=== PATIENT | female | born 1955 | race African-American/Black ===

== ENCOUNTER 2017-06-12 11:19 | Observation (INO) ==
[2017-06-12] MEDS ORDERED: NITROGLYCERIN 2% OINT 1 INCH/GM PACK TOP STA (12:15)
[2017-06-12] MEDS ORDERED: ALUM/MAG/SIMETH/LIDO VISC 1:1 30 ML BOTTLE PO STA (12:15)
[2017-06-12] MEDS ORDERED: ONDANSETRON 4 MG/2 ML VIAL IV STA (12:15)
[2017-06-12] MEDS ORDERED: METOPROLOL TARTRATE 25 MG TABLET PO STA (12:15)
[2017-06-12] MEDS ORDERED: ASPIRIN 325 MG TABLET PO STA (12:15)
[2017-06-12] MEDS ORDERED: KETOROLAC 30 MG/1 ML VIAL IV STA (12:15)
[2017-06-12] MEDS ORDERED: MORPHINE 2 MG/1 ML SYRINGE IV STA (12:16)
[2017-06-12 12:27] LABS: Basophils # 0.1 10*3/uL (0.0-0.2); Basophils % 0.8 % (0.0-0.8); Eosinophils # 0.2 10*3/uL (0.0-0.87); Eosinophils % 2.5 % (0.00-10.9); Hemoglobin 12.2 GM/DL (12.0-16.0); Immature Granulocytes % 0.3 %; Immature Granulocytes Absolute 0.02 #; Lymphocytes # 1.6 10*3/uL (1.4-4.0); Lymphocytes % 21.6 % (21.3-54.2); Mean Corpuscular HGB Conc 34.9 GM/DL (32-36); Mean Corpuscular Hemoglobin 29 PG (27-34); Mean Corpuscular Volume 83.3 FL (87-102); Mean Platelet Volume 11.7 FL (9.6-12.0); Monocytes # 0.6 10*3/uL (0.11-0.8); Monocytes % 7.8 % (1.7-12.7); Neutrophils # 4.8 10*3/uL (1.4-7.4); Platelet Count 232 T/CUMM (130-400); Red Cell Distribution Width 12.9 % (9.3-17.3); White Blood Count 7.2 T/CUMM (4-12)
[2017-06-12] MEDS ORDERED: NITROGLYCERIN 2% OINT 1 INCH/GM PACK TOP ONE (12:27)
[2017-06-12] MEDS ORDERED: ALUM/MAG/SIMETH/LIDO VISC 1:1 30 ML BOTTLE PO ONE (12:28)
[2017-06-12] MEDS ORDERED: METOPROLOL TARTRATE 25 MG TABLET ONE (12:28)
[2017-06-12] MEDS ORDERED: MORPHINE 2 MG/1 ML SYRINGE ONE (12:28)
[2017-06-12] MEDS ORDERED: ONDANSETRON 4 MG/2 ML VIAL ONE (12:28)
[2017-06-12] MEDS ORDERED: KETOROLAC 30 MG/1 ML VIAL ONE (12:28)
[2017-06-12] MEDS ORDERED: ASPIRIN 325 MG TABLET ONE (12:28)
--- NOTE | 2017-06-12 12:30 | Emergency Department Note ---
Mane Seay Hilary, am scribing for, and in the presence of, Tom Ramires MD 12:12. Ike Seay Charles R, MD, personally performed the services described in this documentation, ascribed by Pamela Gilliam in my presence, and it is both accurate and complete . Arrival - Arrival Chief Complaint: Chest Pain Stated Complaint: Sharp pain down left arm. N/v, sweating ED Nursing Triage Note: Left arm pain onset on Friday with radiation into chest - pt states that she was seen and treated by her family MD yesterday and was given nitro - pt states that she has been taking nitro at home without relief Mode of Arrival: Ambulatory Limitations: No Limitations Source: Patient, RN Notes Reviewed Time Seen by Provider: 06/12/17 11:55 - History of Present Illness HPI Narrative: Pt is a 62 y/o female presenting to the ED with c/o left arm pain which onset 5 days ago. She reports having left arm pain. Pt states that she was seen and treated by her family MD at [facility] yesterday and was given nitro but it hasn't given her any relief. She confirms left arm pain that radiates to her chest, diaphoresis, pounding in her ears, dizziness, Nausea and vomiting. Pt has a PMHx of HTN and NIDDM. No other complaints or problems stated in the ED. Onset (ago): day(s) Consistency: constant Severity: mild Severity scale (1-10): 1 Quality: sharp Date of Last Menstrual Period: hyster Allergies/Adverse Reactions: Allergies Allergy/AdvReac Type Severity Reaction Status Date / Time codeine AdvReac Dizziness Verified 11/25/15 03:50 Home Medications: Home Medications Medication Instructions Recorded Confirmed Type Amlodipine Besylate [Amlodipine 1 tablet PO BID 11/24/15 11/24/15 History Besylate] Estradiol [Estradiol Tab] 2 mg PO DAILY 11/24/15 11/24/15 History Ketorolac Tab [Toradol Tab] 10 mg PO Q8H #14 tablet 11/24/15 Rx Losartan/Hydrochlorothiazide 100 mg PO DAILY 11/24/15 11/24/15 History [Losartan-Hctz 100-12.5 mg Tab] Sitagliptin Phos/Metformin HCl 1 tablet PO BID 11/24/15 11/24/15 History [Janumet 50-1,000 mg Tablet] glipiZIDE [Glipizide Xl] 1 tablet PO BID 11/24/15 11/24/15 History Cyclobenzaprine [Flexeril] 10 mg PO TID #20 tablet 11/25/15 Rx HYDROcodone/ACETAMIN 10-325 [[place] 1 tablet PO Q6H #14 tablet 11/25/15 Rx 10-325] Review of System - Review of System 12 point system: reviewed and no additional remarkable complaints except as stated - Review of System Constitutional: Present: diaphoresis. Absent: fever Cardiovascular: Present: chest pain Gastrointestinal: Present: nausea, vomiting Musculoskeletal: Present: arm pain (left arm pain) Medical,Surgical,& Family Hx - Medical History Cardio: History of: Hypertension Endocrine: History of: Diabetes Mellitus (NIDDM) (GLIPIZIDE AND BUTOMAX) Gastrointestinal: History of: Bowel Obstruction (2002) - Surgical History Abdominal Surgeries: Surgical HX of: Abdominal Surgery (2002 FOR BOWEL OBSTRUCTION) Reproductive Surgeries: Surgical HX of;: Hysterectomy (1994) - Family History Family History: Reports;: Family Diabetes (MOM, SISTER, BROTHER), Family Hypertension - Social History Smoking Status: Never smoker Frequency of Alcohol Use: None Type of Drug Use: None Exam Vital Signs: Vital Signs Temperature 98.1 F 06/12/17 11:30 Pulse Rate 90 06/12/17 11:30 Respiratory Rate 20 06/12/17 11:30 Blood Pressure 171/80 06/12/17 11:30 O2 Sat by Pulse Oximetry 100 06/12/17 12:18 - General General appearance: alert, in no apparent distress - Head Head exam: Present: atraumatic, normocephalic - Eye Eye exam: Present: normal appearance, PERRL, EOMI - ENT ENT exam: Present: mucous membranes moist, TM's normal bilaterally. Absent: mucous membranes dry - Neck Neck exam: Present: full ROM, trachea midline. Absent: tenderness - Chest Chest inspection: Present: symmetric chest wall rise, tenderness (reproduceable chestwall tenderness under the left breast) - Respiratory Respiratory exam: Present: normal lung sounds bilaterally. Absent: respiratory distress - Cardiovascular Cardiovascular exam: Present: regular rate, normal rhythm, normal heart sounds. Absent: murmur, rubs, gallop - Abdominal Exam Abdominal exam: Present: soft, normal bowel sounds. Absent: distention, tenderness - Extremities Exam Extremities exam: Present: full ROM. Absent: tenderness - Back Exam Back exam: Present: full ROM. Absent: tenderness - Neurological Exam Neurological exam: Present: alert, oriented X3, CN II-XII intact. Absent: motor sensory deficit - Psychiatric Psychiatric exam: Present: normal affect, normal mood - Skin Skin exam: Present: warm, dry, intact, normal color. Absent: rash Course - Consultations Consultation #1: Hospitalist will admit patient Time: 15:13 Results - Labs CBC & BMP: 06/12/17 12:10 06/12/17 12:10 Lab Results: I have reviewed the patients labs Labs: Laboratory Tests 06/12/17 12:10 WBC 7.2 RBC 4.20 Hgb 12.2 Hct 35.0 L MCV 83.3 L Plt Count 232 Laboratory Tests 06/12/17 12:10 INR 1.0 PT Patient/Control Mix 10.3 D-Dimer, Quantitative <= 0.5 Laboratory Tests 06/12/17 06/12/17 12:10 12:10 Sodium 141 Potassium 4.3 Chloride 106 Carbon Dioxide 26 BUN 19 H Creatinine 1.20 H Glucose 153 H Troponin I < 0.015 Albumin 3.3 L Globulin 3.6 H Albumin/Globulin Ratio 0.9 L - Diagnostic Findings Procedure: Chest x-ray: report reviewed by me (No evidence of acute pathology) Disposition Clinical Impression: Chest pain Case discussed with: patient Disposition: Still a Patient Condition: Stable Time of Disposition: 15:13
--- NOTE | 2017-06-12 12:43 | XRay Report ---
XR chest 1V portable Indication: Chest pain. Comparison: None. Technique: Portable AP chest was performed. Findings: Heart size is normal. Pulmonary vasculature appears within normal limits. No significant abnormality of the mediastinal contours demonstrated. Lungs are clear. Bones and soft tissues demonstrate no significant abnormalities. Impression: 1. No evidence of acute pathology. 06/12/2017 12:40 PM PROCEDURE INTERPRETED AT [facility] [place] DEPARTMENT OF RADIOLOGY Final Report Signed by: Dr. Mohsen Moore
[2017-06-12 12:49] LABS: D-Dimer <= 0.5 MG/L FEU; PT Patient Result 10.3 SECS
[2017-06-12 13:13] LABS: Albumin 3.3 G/DL (3.4-5.0); Bilirubin,Total 0.8 MG/DL (0.2-1.0); Calcium 9.7 MG/DL (8.5-10.1); Magnesium 1.9 MG/DL (1.8-2.4); Osmolality,Calculated 285.3 MOS/KG (273-304); Potassium 4.3 MMOL/L (3.5-5.1); Total Protein 6.9 G/DL (6.4-8.3)
--- NOTE | 2017-06-12 15:48 | EKG Report ---
Stationary ECG Study [facility] ER Test Date: 06/12/2017 3:45:57 PM Pat Name: RUDOLPH MAHER Department: Room: Gender: F Captain/Check Airman: : 1955 Requested by: Tom Flanagan Order Number: [id number] Reading MD: LISA LIRIANO Intervals [place] Rate: 59 P: 50 MO: 142 QRS: 23 QRSD: 66 T: 133 QT: 417 QTc: 417 Interpretive Statements SINUS RHYTHM Electronically Signed On 06-13-17 15:51:59 CDT by LISA LIRIANO [email or web address]
[2017-06-12] MEDS ORDERED: ACETAMINOPHEN 325 MG TABLET PO PRN (15:52)
[2017-06-12] MEDS ORDERED: INSULIN REGULAR 100 UNIT/ML SUBCUT ONE (15:52)
[2017-06-12] MEDS ORDERED: ONDANSETRON 4 MG/2 ML VIAL IV PRN (15:52)
--- NOTE | 2017-06-12 16:04 | Hospitalist History & Physical ---
Assessment and Plan (1) Diabetes Status: Acute Current Visit: Yes (2) Hypertension Status: Acute Current Visit: Yes (3) Chest pain Status: Acute Assessment and plan: Our plan for this patient will be admitting her to a monitored bed. Draw serial cardiac enzymes check a fasting lipid profile and consult cardiology. Continue home meds as appropriate once they are confirmed. Temporarily placing her on a sliding scale as needed. Current Visit: Yes History of Present Illness Chief complaint: Chest pain arm pain History of present illness: Ms. Gordillo is a 62 year old female with past medical history significant for diabetes and hypertension has been experiencing left arm pain for a few days. She went over to Dr. Sterling's office and he prescribed her sublingual nitroglycerin. When the pain came on she did take them and it did help with the pain. But she started developing nausea and vomiting and some chest tightness. She reports the chest tightness radiates to her back. She called Dr. Maldonado office today and they recommended she come up to our hospital for further evaluation I was consulted to admit her through the emergency room Home Medications Medication Instructions Recorded Confirmed Type Estradiol [Estradiol Tab] 2 mg PO DAILY 11/24/15 11/24/15 History Losartan/Hydrochlorothiazide 100 mg PO DAILY 11/24/15 11/24/15 History [Losartan-Hctz 100-12.5 mg Tab] Aspirin EC Tab 81 mg PO QAM 06/12/17 06/12/17 History Atorvastatin [Lipitor] 40 mg PO PC SUPPER 06/12/17 History Insulin Detemir [Levemir FlexPen] 25 units SUBCUT QPM 06/12/17 History NIFEdipine [Nifedipine ER] 60 mg PO DAILY 06/12/17 History Nitroglycerin Sl Tab [Nitrostat] 0.4 mg SL Q5M PRN 06/12/17 History Allergies Allergy/AdvReac Type Severity Reaction Status Date / Time codeine AdvReac Dizziness Verified 11/25/15 03:50 Medical,Surgical,& Family Hx - Medical History Cardio: History of: Hypertension Endocrine: History of: Diabetes Mellitus (NIDDM) (GLIPIZIDE AND BUTOMAX) Gastrointestinal: History of: Bowel Obstruction (2002) - Surgical History Abdominal Surgeries: Surgical HX of: Abdominal Surgery (2002 FOR BOWEL OBSTRUCTION) Reproductive Surgeries: Surgical HX of;: Hysterectomy (1994) - Family History Family History: Reports;: Family Diabetes (MOM, SISTER, BROTHER), Family Hypertension - Social History Smoking Status: Never smoker Frequency of Alcohol Use: None Type of Drug Use: None 12 point system: reviewed and no additional remarkable complaints except as stated Exam - Constitutional Vitals: Period Temp Pulse Resp BP Sys/Hannah Pulse Ox Last 24 Hr 98.1 F-98.1 F 61-90 20-20 146-171/80-82 97-100 - General General appearance: alert, in no apparent distress - Head Head exam: Present: atraumatic, normocephalic - Eye Eye exam: Present: normal appearance, PERRL, EOMI - ENT ENT exam: Present: mucous membranes moist, TM's normal bilaterally. - Neck Neck exam: Present: full ROM, trachea midline. - Chest Chest inspection: Present: symmetric chest wall rise, some tenderness appreciated - Respiratory Respiratory exam: Present: normal lung sounds bilaterally. - Cardiovascular Cardiovascular exam: Present: regular rate, normal rhythm, normal heart sounds - Abdominal Exam Abdominal exam: Present: soft, normal bowel sounds. - Extremities Exam Extremities exam: Present: full ROM. - Back Exam Back exam: Present: full ROM. - Neurological Exam Neurological exam: Present: alert, oriented X3, CN II-XII intact. - Psychiatric Psychiatric exam: Present: normal affect, normal mood - Skin Skin exam: Present: warm, dry, intact, normal color. Absent: rash Results - Labs CBC & BMP: 06/12/17 12:10 06/12/17 12:10
[2017-06-12 17:32] LABS: Risk Ratio 3.94; VLDL CHOLESTEROL 26.4 MG/DL
[2017-06-12] MEDS: NITROGLYCERIN 2% OINT 1 INCH/GM PACK TOP SCH (17:32)
[2017-06-12] MEDS: INSULIN REGULAR 100 UNIT/ML SUBCUT SCH ×3 (17:37→23:57)
[2017-06-12] MEDS: ASPIRIN EC 325 MG TABLET PO SCH (17:37)
[2017-06-13] MEDS: NITROGLYCERIN 2% OINT 1 INCH/GM PACK TOP SCH ×2 (00:04→06:15)
[2017-06-13] MEDS: MORPHINE 2 MG/1 ML SYRINGE IV PRN ×3 (03:47→20:12)
--- NOTE | 2017-06-13 06:04 | EKG Report ---
Stationary ECG Study [facility] ER Test Date: 06/12/2017 11:28:02 AM Pat Name: RUDOLPH MAHER Department: Room: 534 Gender: F Top Spotter: : 1955 Requested by: Tom Flanagan Order Number: [id number] Reading MD: LISA LIRIANO Intervals [place] Rate: 75 P: 64 NE: 126 QRS: 34 QRSD: 65 T: 127 QT: 369 QTc: 398 Interpretive Statements SINUS RHYTHM NONSPECIFIC T WAVE ABNORMALITY Electronically Signed On 06-13-17 15:45:54 CDT by LISA LIRIANO [email or web address]
[2017-06-13] MEDS: INSULIN REGULAR 100 UNIT/ML SUBCUT SCH ×4 (06:14→22:53)
--- NOTE | 2017-06-13 11:26 | Cardiology Consult Note ---
Elan Seay April RN, am scribing for, and in the presence of, Sweetie Barboza NP 11:21. Assessment and Plan - Time spent with patient Time spent with patient: Greater than 30 minutes (Assessment, planning, documentation, medication review) (1) Chest pain Status: Acute Assessment and plan: SEE PLAN OF CARE LISTED BELOW Current Visit: Yes (2) Diabetes Status: Chronic Assessment and plan: SEE PLAN OF CARE LISTED BELOW Current Visit: Yes (3) Hypertension Status: Chronic Assessment and plan: SEE PLAN OF CARE LISTED BELOW Current Visit: Yes (4) Dyslipidemia Status: Chronic Assessment and plan: SEE PLAN OF CARE LISTED BELOW Current Visit: Yes (5) Shoulder pain, left Status: Acute Assessment and plan: SEE PLAN OF CARE LISTED BELOW Current Visit: Yes Qualifiers: Chronicity: acute Qualified Code(s): M25.512 - Pain in left shoulder History of Present Illness - Data of Consult Patient: new to practice Consult date: 06/12/17 Requesting Physician: Shahid Crouch Primary care physician: Devora Owens - Consult Narrative Reason for consult: Chest pain History of present illness: 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 MAX PCP: DR. MEDINA FREY Ms. Gordillo is a 62 year old female who is never been seen by naturopathic oncology provider. She denies any history of ever having had a heart catheterization or stress test. She has a history of hypertension and NIDDM. Surgical history includes hysterectomy, surgery for bowel obstruction, bilateral cataracts. Family history is positive for mother and siblings with diabetes, mother and sister with hypertension, and brother with cancer. She reports she is a lifetime non- smoker. She lives with her son. She does not use assistance of a cane or walker to ambulate. She states she is active and walks her dog every day. On Friday of this week she began to experience pain to her left arm, left back, and left side of her chest. She describes this as a dull, constant pain that progressively got worse through the week. The left shoulder pain is worse with movement causing numbness tingling and pain down the left arm when she moves her arm in a range of motion type activity. Of note, her chest pain is reproducible to light palpation as well. Rates the discomfort as a 7 on a scale of 1-10. At this time, she is chest pain and arm/shoulder pain free until I perform movements and palpation in these areas. On admission, blood pressure 171/80. She was given 5 mg of Lopressor pressure IV in the emergency department and her blood pressure improved. Normally, patient can perform her activities at home without chest pain, heaviness, tightness or shortness of breath. In fact, she walks her pit bull every day at least 1 mile and can perform these activities without symptoms of angina. Troponin is negative 3, chest x-ray stable. EKG does not reveal acute NV. D-dimer was negative as well. At this time, n.p.o. for stress testing this morning. Will adjust her medications for better blood pressure control as well. Adding a lipid profile as well. I will further discuss with Dr. Max and await additional recommendations. Admission lab data: WBC 7.2 hemoglobin 12.2 hematocrit 35 Sodium 141 potassium 4.3 chloride 106 CO2 26 BUN 19 creatinine 1.2 BNP 36 magnesium 1.9 Triglycerides 132 cholesterol 244 LDL 147 HDL 62 ASSESSMENT/PLAN: 1. CHEST PAIN - atypical for chest pain. Will order Cardiolite stress test. 2. SHOULDER PAIN - atypical for chest pain. Cardiolite stress test this morning. If this is negative, x-ray of shoulder 3. HYPERTENSION - suboptimally controlled at this time. Will adjust medications accordingly 4. DYSLIPIDEMIA - LDL 147. Currently on Lipitor 40 mg. I will increase to 80 mg each evening 5. NIDDM - continue current medications for treatment of diabetes CC: Vasquez Ferreira MD - Home Medications and Allergies Home Medications: Home Medications Medication Instructions Recorded Confirmed Type Estradiol [Estradiol Tab] 2 mg PO QAM 11/24/15 06/12/17 History Losartan/Hydrochlorothiazide 100 mg PO QAM 11/24/15 06/12/17 History [Losartan-Hctz 100-12.5 mg Tab] Aspirin EC Tab 81 mg PO QAM 06/12/17 06/12/17 History Atorvastatin [Lipitor] 40 mg PO PC SUPPER 06/12/17 06/12/17 History Insulin Detemir [Levemir FlexPen] 25 units SUBCUT BIDAC 06/12/17 06/12/17 History NIFEdipine [Nifedipine ER] 60 mg PO QAM 06/12/17 06/12/17 History Nitroglycerin Sl Tab [Nitrostat] 0.4 mg SL Q5M PRN 06/12/17 06/12/17 History Allergies/Adverse Reactions: Allergies Allergy/AdvReac Type Severity Reaction Status Date / Time codeine AdvReac Dizziness Verified 11/25/15 03:50 - Constitutional Constitutional: Present: as per HPI. Absent: excessive sweating, fatigue, frequent falls - EENT Eyes: Present: requires corrective lense. Absent: blurry vision, loss of vision Ears: Present: tinnitus. Absent: ear pain Nose, mouth and throat: Present: neck pain. Absent: epistaxis, headache(s) - Cardiovascular Cardiovascular: Present: chest pain at rest, diaphoresis, radiating jaw, neck or arm pain. Absent: chest pain with activity, dyspnea, dyspnea on exertion, edema, lightheadedness, orthopnea, palpitations - Respiratory Respiratory: Present: cough. Absent: dyspnea, hemoptysis, dyspnea on exertion, wheezing - Gastrointestinal Gastrointestinal: Present: nausea, vomiting. Absent: abdominal pain, constipation, diarrhea, hematemesis, hematochezia, melena - Genitourinary Genitourinary: Absent: dysuria, hematuria - Musculoskeletal Musculoskeletal: Present: back pain, limited range of motion - Neurological Neurological: Absent: confusion, dizziness, frequent falls, headache(s), syncope - Psychiatric Psychiatric: Absent: anxiety, depression - Endocrine Endocrine: Present: cold intolerance. Absent: polydipsia, polyuria - Hematologic/Lymphatic Hematologic/Lymphatic: Absent: easy bleeding, easy bruising Medical,Surgical,& Family Hx - Medical History Cardio: History of: Hypertension Endocrine: History of: Diabetes Mellitus (NIDDM) Gastrointestinal: History of: Bowel Obstruction (2002) Musculoskeletal: History of: Musculoskeletal Problems (arthritis) - Surgical History HEENT Surgeries: Surgical HX of: Eye Surgery (Bilateral cataract) Abdominal Surgeries: Surgical HX of: Abdominal Surgery (2002 FOR BOWEL OBSTRUCTION) Reproductive Surgeries: Surgical HX of;: Hysterectomy (1994) - Family History Family History: Reports;: Family Cancer (Brother), Family Diabetes (MOM, SISTER , BROTHER), Family Hypertension (Mother, sister) Comment Only: Additional Family History (pts sister had lupus) - Social History Smoking Status: Never smoker Have you smoked in the last 12 months: No Frequency of Alcohol Use: None Type of Drug Use: None Lives With:: Children Functional capacity: independent ambulation Physical Examination Vital Signs Temp Pulse Resp BP Pulse Ox 98.1 F 90 20 171/80 100 06/12/17 11:22 06/12/17 11:22 06/12/17 11:22 06/12/17 11:22 06/12/17 11:22 General: Present: Appears Well, No Apparent Distress HEENT: Present: PERRL, Mucus Membranes Moist Neck: Present: Supple Neck, Midline Trachea, No Bruit Cardiac: Present: Reg Rate and Rhythm, No Murmur Lungs: Present: Normal Breath Sounds, No Wheeze, Rales, Rhonchi Neuro: Present: Tingling, Grossly Intact. Absent: Weakness, Resting Tremor, Essential Tremor Abdomen: Present: Soft, Active Bowel Sounds, Non-Tender. Absent: Distended Skin: Absent: Rash, Suspicious Lesions Musculoskeletal: Present: Decreased Range of Motion, No Pain Gait: Present: Normal Gait Extremities: Present: No Edema, Normal Upper Extr. Pulses, Normal Lower Extr. Pulses (Weak pulses) Result/EKG - Labs CBC & BMP: 06/12/17 12:10 06/12/17 12:10 Lab Results: I have reviewed the past 24 hour labs Labs: Laboratory Results - last 24 hr 06/12/17 06/12/17 06/12/17 12:10 12:10 12:10 WBC RBC Hgb Hct MCV MCH MCHC RDW Plt Count MPV Neut % (Auto) Lymph % (Auto) Webb % (Auto) Eos % (Auto) Baso % (Auto) Neut # (Auto) Lymph # (Auto) Webb # (Auto) Eos # (Auto) Baso # (Auto) Immature Gran % Nucleated RBC % Immature Gran # Nucleated RBCs # Immature Plt Fraction INR 1.0 PT Patient/Control Mix 10.3 D-Dimer, Quantitative <= 0.5 Sodium 141 Potassium 4.3 Chloride 106 Carbon Dioxide 26 Anion Gap 13.3 BUN 19 H Creatinine 1.20 H GFR Calculation 53 BUN/Creatinine Ratio 15.00 Glucose 153 H POC Glucose Calculated Osmolality 285.3 Calcium 9.7 Magnesium 1.9 Total Bilirubin 0.80 AST 13 ALT 16 Alkaline Phosphatase 103 Troponin I B-Natriuretic Peptide 36 Total Protein 6.9 Albumin 3.3 L Globulin 3.6 H Albumin/Globulin Ratio 0.9 L Triglycerides Cholesterol LDL Cholesterol VLDL Cholesterol HDL Cholesterol Heart Disease Risk Ratio Lipase 90.0 08/06/12/17 06/12/17 12:10 12:10 15:53 WBC 7.2 RBC 4.20 Hgb 12.2 Hct 35.0 L MCV 83.3 L MCH 29 MCHC 34.9 RDW 12.9 Plt Count 232 MPV 11.7 Neut % (Auto) 67.0 Lymph % (Auto) 21.6 Webb % (Auto) 7.8 Eos % (Auto) 2.5 Baso % (Auto) 0.8 Neut # (Auto) 4.8 Lymph # (Auto) 1.6 Webb # (Auto) 0.6 Eos # (Auto) 0.2 Baso # (Auto) 0.1 Immature Gran % 0.3 Nucleated RBC % 0.0 Immature Gran # 0.02 Nucleated RBCs # 0.00 Immature Plt Fraction 0.0 INR PT Patient/Control Mix D-Dimer, Quantitative Sodium Potassium Chloride Carbon Dioxide Anion Gap BUN Creatinine GFR Calculation BUN/Creatinine Ratio Glucose POC Glucose Calculated Osmolality Calcium Magnesium Total Bilirubin AST ALT Alkaline Phosphatase Troponin I < 0.015 < 0.015 B-Natriuretic Peptide Total Protein Albumin Globulin Albumin/Globulin Ratio Triglycerides Cholesterol LDL Cholesterol VLDL Cholesterol HDL Cholesterol Heart Disease Risk Ratio Lipase 06/12/17 06/12/17 06/12/17 16:54 17:12 18:43 WBC RBC Hgb Hct MCV MCH MCHC RDW Plt Count MPV Neut % (Auto) Lymph % (Auto) Webb % (Auto) Eos % (Auto) Baso % (Auto) Neut # (Auto) Lymph # (Auto) Webb # (Auto) Eos # (Auto) Baso # (Auto) Immature Gran % Nucleated RBC % Immature Gran # Nucleated RBCs # Immature Plt Fraction INR PT Patient/Control Mix D-Dimer, Quantitative Sodium Potassium Chloride Carbon Dioxide Anion Gap BUN Creatinine GFR Calculation BUN/Creatinine Ratio Glucose POC Glucose 134 H Calculated Osmolality Calcium Magnesium Total Bilirubin AST ALT Alkaline Phosphatase Troponin I < 0.015 B-Natriuretic Peptide Total Protein Albumin Globulin Albumin/Globulin Ratio Triglycerides 132 Cholesterol 244 H LDL Cholesterol 147.0 VLDL Cholesterol 26.4 HDL Cholesterol 62 H Heart Disease Risk Ratio 3.94 Lipase 06/12/17 06/13/17 06/13/17 22:08 00:42 04:17 WBC RBC Hgb Hct MCV MCH MCHC RDW Plt Count MPV Neut % (Auto) Lymph % (Auto) Webb % (Auto) Eos % (Auto) Baso % (Auto) Neut # (Auto) Lymph # (Auto) Webb # (Auto) Eos # (Auto) Baso # (Auto) Immature Gran % Nucleated RBC % Immature Gran # Nucleated RBCs # Immature Plt Fraction INR PT Patient/Control Mix D-Dimer, Quantitative Sodium Potassium Chloride Carbon Dioxide Anion Gap BUN Creatinine GFR Calculation BUN/Creatinine Ratio Glucose POC Glucose 439 H 212 H 110 H Calculated Osmolality Calcium Magnesium Total Bilirubin AST ALT Alkaline Phosphatase Troponin I B-Natriuretic Peptide Total Protein Albumin Globulin Albumin/Globulin Ratio Triglycerides Cholesterol LDL Cholesterol VLDL Cholesterol HDL Cholesterol Heart Disease Risk Ratio Lipase - Diagnostic Findings Procedure: Chest x-ray: report reviewed by me - EKG EKG results: interpreted by me EKG shows: sinus rhythm Jabari Seay Bonnie E, NP, personally performed the services described in this documentation, ascribed by Cathie Ansari RN in my presence, and it is both accurate and complete 125 .
--- NOTE | 2017-06-13 11:29 | Event Note ---
Patient underwent Cardiolite stress test without difficulty. She achieved target heart rate easily and without complaints of chest pain, heaviness, tightness or shortness of breath. No arrhythmia, no ST changes noted. Good exercise tolerance noted. She was hypertensive initially at the beginning of the study and reached a maximum of 180/100 at peak. At this time, patient is being transitioned to nuclear medicine for completion of final scan. Dr. Max to read, interpreted and advise
[2017-06-13] MEDS ORDERED: GLUCAGON 1 MG VIAL IM PRN (12:08)
[2017-06-13] MEDS ORDERED: DEXTROSE 50% 25 GM/50 ML SYRINGE IV PRN (12:08)
[2017-06-13] MEDS: PANTOPRAZOLE 40 MG TABLET PO SCH (12:15)
[2017-06-13] MEDS: ASPIRIN EC 325 MG TABLET PO SCH (12:15)
[2017-06-13] MEDS: LOSARTAN 50 MG TABLET PO SCH (12:15)
[2017-06-13] MEDS: hydroCHLOROthiazide 12.5 MG CAPSULE PO SCH (12:15)
--- NOTE | 2017-06-13 15:07 | XRay Report ---
Two-view left shoulder June 13, 2017 Indication: Pain with motion, limited range of motion Comparison images not available Findings: No fracture or dislocation. Positioning is somewhat suboptimal. Minimal spurring across the AC joint. Visualized lung parenchyma is well aerated. No demonstratable rib fractures. No soft tissue abnormalities. Impression: Unremarkable left shoulder slightly limited by suboptimal positioning. PROCEDURE INTERPRETED AT [facility] DEPARTMENT OF RADIOLOGY Final Report Signed by: Mohsen Villanueva
--- NOTE | 2017-06-13 15:45 | Nuclear Medicine Report ---
DATE: 06/13/2017 PROCEDURE: EXERCISE CARDIOLITE GATED SPECT PERFUSION STUDY. REFERRING PHYSICIAN: Dr. Latrice Ferreira INITIAL IMPRESSION: 1. A 62-YEAR-OLD WITH ATYPICAL CHEST PAIN. 2. ABNORMAL EKG. 3. HYPERTENSION. FINAL IMPRESSION: NORMAL EXERCISE CARDIOLITE GATED SPECT PERFUSION STUDY. I. DESCRIPTION OF PROCEDURE: The patient received 10.0 mCi of Technetium-99m Cardiolite IV and rest images were obtained in the routine manner 20 minutes later. The patient then walked for 6 minutes and 7 seconds on the standard Alec protocol and achieved peak heart rate of 49, which is 96% of her predicted maximal heart rate. At peak exercise, 30.0 mCi of Technetium-99m and Cardiolite IV was inj ected and stress image was obtained in the routine manner 20 minutes later. Serial electrocardiogram s were performed. The initial blood pressure was 160/82 and was 184/100 immediate post exercise. II. RESULTS: The patient had no chest pain or arrhythmias and the test was terminated due to shortn ess of breath and fatigue. The resting EKG demonstrates normal sinus rhythm with late transition and diffuse ST-T wave changes. With exercise, no diagnostic EKG changes occurred. No arrhythmias. The left ventricular cavity is small. Tomographic imaging demonstrates homogeneous uptake of radiois otope at all segments. There is no evidence for ischemia or scar. Gated SPECT imaging demonstrates normal wall motion and thickening in all segments. The calculated ejection fraction is 66%. III. FINAL IMPRESSION: 1. CLINICALLY AND ELECTROCARDIOGRAPHICALLY NEGATIVE. 2. SCINTIGRAPHICALLY NORMAL PERFUSION STUDY. IV. DISPOSITION: The patient should be reassured regarding the lack of any evidence for significant coronary artery disease at this time. She had no chest pain or diagnostic EKG changes and tomograph ic imaging is normal. In addition, ventricular function is well preserved with ejection fraction of 66%. This is a low-risk scan. Continued medical therapy and risk factor modification recommended. Procedure performed and interpreted at [facility] Department of Radiology.
[2017-06-13] MEDS ORDERED: traMADol 50 MG TABLET PO PRN (15:46)
--- NOTE | 2017-06-13 15:49 | Hospitalist Progress Note ---
Hospitalist: Subjective Interval history: 62-year-old -[place] female with history of hypertension diabetes hypercholesterolemia admitted with chest pain. Chest pain is better but she still complains of some pain in her left shoulder and arm. Exam - Constitutional Vitals: Period Temp Pulse Resp BP Sys/Hannah Pulse Ox Last 24 Hr 97.4 F-98.2 F 61-93 18-20 134-176/70-90 92-98 Exam: General: No Acute Distress HEENT: Normocephalic, atraumatic, Extra ocular movements intact Neck: Supple, No JVD Chest: Clear to auscultation B/L CV: S1 + S2 audible without murmur, gallop or rub Abd: soft, NT, Non-distended, BS + Ext: No edema Skin: No purpura, bruising or rash Rheumatologic: No Joint deformities Neurologic: Strength 5/5 all extremities, no gross sensory deficits Results - Labs CBC & BMP: 06/12/17 12:10 06/12/17 12:10 - Impressions Assessment and Plan: (1) Chest pain Status: Acute Assessment and plan: Patient was seen by cardiology underwent a heart stress test Current Visit: Yes (2) Diabetes type II Status: Chronic Assessment and plan: Resume Levemir. check hemoglobin A1c Current Visit: Yes (3) Hypertension Status: Chronic Assessment and plan: Uncontrolled increase Procardia XL to 90 mg Current Visit: Yes (4) Hypercholesterolemia Status: Chronic Assessment and plan: Cholesterol is 244 and LDL is 147, she is on Lipitor 80 mg. I counseled her on low-fat and low-cholesterol diet Current Visit: Yes (5) Shoulder pain, left Status: Acute Assessment and plan: Shoulder x-ray was unremarkable, tramadol and morphine as needed for pain Current Visit: Yes
[2017-06-13] MEDS ORDERED: ATORVASTATIN 40 MG TABLET PO SCH (18:00)
--- NOTE | 2017-06-13 19:28 | ECHO Report ---
[place] Exam Date: 06/13/2017 15:31 Referring Physician: Technologist: Sharita Jones Age: 62 Ht (in): 63 Wt (lb): 134 Gender: F Exam Location: [facility] Echo Indications: chest pain, diabetes, HTN, dyslipidemia BP: 162 / 88 HR: 78 Rhythm: Sinus Technical Quality: Fair IMPRESSIONS Left ventricular ejection fraction is estimated at 60 %. Mild concentric left ventricular hypertrophy. Grade I/IV diastolic dysfunction (abnormal relaxation filling pattern), normal to mildly elevated filling pressures. Normal right ventricular size. Normal right atrial size. The left atrium is mildly enlarged. Mildly thickened mitral valve. Trace mitral valve regurgitation. Aortic valve sclerosis. No aortic valve regurgitation. Mild tricuspid valve regurgitation. [id number]. Morphologically normal pulmonic valve. No pericardial effusion. Normal size aortic root and proximal ascending aorta. MEASUREMENTS (Male / Female) Normal Values 2D ECHO LV Diastolic Diameter PLAX 3.8 cm 4.2 - 5.9 / 3.9 - 5.3 cm LV Systolic Diameter PLAX 2.1 cm LV Fractional Shortening PLAX 46.2 % IVS Diastolic Thickness 1.2 cm 0.6 - 1.0 / 0.6 - 0.9 cm LVPW Diastolic Thickness 1.2 cm 0.6 - 1.0 / 0.6 - 0.9 cm Aortic Root Diameter 2.4 cm LA Systolic Diameter LX 3.6 cm 3.0 - 4.0 / 2.7 - 3.8 cm DOPPLER TR Peak Velocity 231.0 cm/s TR Peak Gradient 21.3 mmHg FINDINGS Left Ventricle Left ventricular ejection fraction is estimated at 60 %. . Mild concentric left ventricular hypertrophy. Grade I/IV diastolic dysfunction (abnormal relaxation filling pattern), normal to mildly elevated filling pressures. Right Ventricle Normal right ventricular size. Right Atrium Normal right atrial size. Left Atrium The left atrium is mildly enlarged. Mitral Valve Mildly thickened mitral valve. Trace mitral valve regurgitation. Aortic Valve Aortic valve sclerosis. No aortic valve regurgitation. Tricuspid Valve Morphologically normal tricuspid valve. Mild tricuspid valve regurgitation. [id number]. Pulmonic Valve Morphologically normal pulmonic valve. Pericardium No pericardial effusion. Aorta Normal size aortic root and proximal ascending aorta. Baldemar Max (Electronically Signed) Final Date: 13 June 2017 19:27
[2017-06-13] MEDS: INSULIN GLARGINE 100 UNIT/ML SUBCUT SCH (20:10)
[2017-06-13] MEDS ORDERED: ATORVASTATIN 80 MG TABLET PO SCH (21:00)
[2017-06-14] MEDS: INSULIN REGULAR 100 UNIT/ML SUBCUT SCH ×2 (06:07→13:20)
[2017-06-14] MEDS ORDERED: BISACODYL 5 MG TABLET PO PRN (06:46)
[2017-06-14] MEDS ORDERED: ASPIRIN EC 81 MG TABLET PO SCH (09:00)
[2017-06-14] MEDS: hydroCHLOROthiazide 12.5 MG CAPSULE PO SCH (10:07)
[2017-06-14] MEDS: LOSARTAN 50 MG TABLET PO SCH (10:07)
[2017-06-14] MEDS: INSULIN GLARGINE 100 UNIT/ML SUBCUT SCH (10:07)
[2017-06-14] MEDS: PANTOPRAZOLE 40 MG TABLET PO SCH (10:08)
[2017-06-14 11:49] VITALS: BP 165/98
--- NOTE | 2017-06-14 11:58 | Cardiology Progress Note ---
Cardiology - PN: Subj Interval history: Cardiology note Patient is comfortable and ready to go home Blood pressure 156/84 in the right arm by me Patient reassured. Normal exercise cardiac stress test Echo showed ejection fraction of 60% with mild LVH, moderate dilated atrium, grade 1 diastolic dysfunction mild TR PA pressure 35 and no effusion Regular rhythm no murmur or gallop Chest clear No edema Plan Agree with discharge Patient encouraged to take her blood pressure medications daily and not to miss doses Exam (Progress Note) - Constitutional Vitals: Period Temp Pulse Resp BP Sys/Hannah Pulse Ox Last 24 Hr 97.3 F-98.2 F 74-83 18-20 148-165/71-98 94-100 Result/EKG - Labs CBC & BMP: 06/12/17 12:10 06/12/17 12:10 Labs: Laboratory Results - last 24 hr 06/13/17 06/13/17 06/13/17 12:15 17:42 19:45 POC Glucose 268 H 224 H 196 H Hemoglobin A1c 06/13/17 06/14/17 06/14/17 22:51 02:30 05:52 POC Glucose 82 315 H Hemoglobin A1c 9.5 H
--- NOTE | 2017-06-14 12:26 | Discharge Summary ---
Hospital Course - Hospital Course Hospital Course: 62 year old female with past medical history significant for diabetes and hypertension has been experiencing left arm pain for a few days. She was admitted for evaluation of left-sided chest pain. The pain was also in the left arm and left back. It had atypical features. He was admitted and ruled out for KS. EKG did not show any evidence of ischemia. Cardiology was consulted. Patient underwent Cardiolite stress test which did not show any gross abnormalities. Chest pain was felt to be noncardiac and atypical. We did increase her Procardia to 90 mg for her uncontrolled hypertension.She also had problems with hypercholesterolemia with total cholesterol 244 and LDL cholesterol 147, and she was started on Lipitor. Left Shoulder pain and back pain and got better with morphine and as needed tramadol. Hemoglobin A1c was 9.5. She was on home Levemir and sliding scale while in the hospital. Her d- dimer was negative at 0.5. She is now overall feeling much better has no further chest pain and arm pain is better with medication. She is being discharged home in improved and stable condition. Total discharge time was 39 minutes. - Time spent with patient Time with patient DS: Greater than 30 minutes Discharge Plan - Discharge Data Condition at Discharge: Stable Discharge Diet: diabetic diet, low salt diet Activity: resume usual activities as tolerated Hygiene: no restrictions Weight Bearing at Discharge: full weight bearing Driving: no restrictions Contact your physician if you experience:: Shortness of breath, pain uncontrolled by pain medications - Discharge Medications New Atorvastatin [Lipitor] 80 mg PO BEDTIME #30 tablet NIFEdipine XL TAB [Procardia Xl] 90 mg PO DAILY #30 tablet traMADol TAB [Ultram] 50 mg PO QID PRN #60 tablet PRN Reason: Pain Moderate (4-7) Continue Estradiol [Estradiol Tab] 2 mg PO QAM Losartan/Hydrochlorothiazide [Losartan-Hctz 100-12.5 mg Tab] 100 mg PO QAM Insulin Detemir [Levemir FlexPen] 25 units SUBCUT BIDAC Aspirin EC Tab 81 mg PO QAM Nitroglycerin Sl Tab [Nitrostat] 0.4 mg SL Q5M PRN PRN Reason: Chest Pain Discontinued NIFEdipine [Nifedipine ER] 60 mg PO QAM Atorvastatin [Lipitor] 40 mg PO PC SUPPER - Follow Up or Referral - Forms/Instructions Exam - Constitutional Vitals: Period Temp Pulse Resp BP Sys/Hannah Pulse Ox Last 24 Hr 97.3 F-98.2 F 74-83 18-20 148-165/71-98 94-100 Exam: General: No Acute Distress HEENT: Normocephalic, atraumatic, Extra ocular movements intact Neck: Supple, No JVD Chest: Clear to auscultation B/L CV: S1 + S2 audible without murmur, gallop or rub Abd: soft, NT, Non-distended, BS + Ext: No edema Skin: No purpura, bruising or rash Rheumatologic: No Joint deformities Neurologic: Strength 5/5 all extremities, no gross sensory deficits Discharge Results Procedures and tests throughout hospitalization: Pending Orders 06/12/17 12:15 Urinalysis Stat Labs on day of discharge: Labs from last 24 hours 06/14/17 06/14/17 06/13/17 05:52 02:30 22:51 POC Glucose 315 H 82 Hemoglobin A1c 9.5 H 06/13/17 06/13/17 19:45 17:42 POC Glucose 196 H 224 H Hemoglobin A1c DS: Provider Date of admission: 06/12/17 15:23 Primary care physician: . No PCP Attending physician on admission: Vasquez Ferreira MD Consults: 06/12/17 15:56 Consult to Physician [CONS] Routine Comment: chest pain Consulting Provider: Cardiology - [facility] Consult to Specialist Group: Cardiology When should Consulting Provider be notified: In am Person Notified: Sharita Date Notified: 06/13/17 Time Notified: 07:57 Discharging clinician: Vasquez Ferreira MD
== END 2017-06-14 13:30 | disposition home or self-care (01) ==
LOC: N.EDINP 11:19 → N.ED 11:19 → OBSVTOIN 15:23 → INTOOBSV 15:23 → N.EDINP 16:34 → N.5E 17:11
PROVIDERS: ADMIT Hospitalist; ATTEND Hospitalist